=== PATIENT | male | born 1960 | race African-American/Black ===

== ENCOUNTER 2016-08-30 09:43 | Emergency (ER) | payer MEDICAID ==
[~2016-08-30] VITALS: Ht 170.2 cm; Wt 68.5 kg
[2016-08-30 10:35] VITALS: BP 155/96
== END 2016-08-30 14:05 | disposition home or self-care (01) ==
LOC: ER 11:04
DX: M62.838 Other muscle spasm (principal); M79.605 Pain in left leg; M54.42 Lumbago with sciatica, left side; F17.200 Nicotine dependence, unspecified, uncomplicated; F12.10 Cannabis abuse, uncomplicated; Z98.890 Other specified postprocedural states
CPT/HCPCS: 99283